=== PATIENT | female | born 1945 | race Caucasian/White ===

== ENCOUNTER → 2023-02-10 | Outpatient (CLI) | payer MEDICARE ==
[2023-02-10 14:00] LABS: Albumin, Blood 3.7 g/dL (3.4-5.0); Albumin/Globulin Ratio 0.8 (0.8-1.8); Bilirubin, Total 0.9 mg/dL (0.1-1.0); Bun/Creatinine Ratio 19.4 (12.0-20.0); Calcium, Blood 8.9 mg/dL (8.5-10.1); Creatinine, Blood 0.93 mg/dL (0.40-1.00); Globulin, Blood 4.4 g/dL (2.2-4.0); Potassium, Blood 4.6 mmol/L (3.5-5.5); Total Protein, Blood 8.1 g/dL (6.4-8.2)
[2023-02-10 14:03] LABS: BASOPHILS ABSOLUTE AUTO 0.01 K/mm3 (0.00-0.23); BASOPHILS PERCENT AUTO 0 % (0-2); EOSINOPHILS ABSOLUTE AUTO 0.03 K/mm3 (0.00-0.68); EOSINOPHILS PERCENT AUTO 0 % (0-6); Hematocrit 37.4 % (33.0-51.0); Hemoglobin 11.4 g/dL (11.5-16.0); IMMATURE GRAN ABSOLUTE AUTO 0.03 K/mm3 (0.00-0.10); IMMATURE GRAN PERCENT AUTO 0 % (0-1); LYMPHOCYTES ABSOLUTE AUTO 1.29 K/mm3 (0.84-5.20); LYMPHOCYTES PERCENT AUTO 17 % (21-46); MONOCYTES ABSOLUTE AUTO 0.46 K/mm3 (0.16-1.47); MONOCYTES PERCENT AUTO 6 % (4-13); Mean Corpuscular HGB 27.7 pg (26.0-34.0); Mean Corpuscular HGB Conc 30.5 g/dL (31.5-36.5); Mean Corpuscular Volume 91 fL (80-100); Mean Platelet Volume 11.1 fL (9.1-12.4); NEUTROPHILS ABSOLUTE AUTO 5.71 K/mm3 (1.96-9.15); NEUTROPHILS PERCENT AUTO 76 % (41-73); Platelet Count 141 K/mm3 (150-400); RDW Coefficient Variation 15.5 % (11.7-14.2); RDW Standard Deviation 51.2 fL (35.1-46.3); Red Blood Cell Count 4.12 M/mm3 (3.80-5.20); White Blood Cell Count 7.53 K/mm3 (4.00-11.30)
== END | disposition home or self-care (01) ==
LOC: LAB 13:47 → LAB SHORT 13:47
PROVIDERS: Chiropractor
DX: E86.0 Dehydration (principal)
CPT/HCPCS: 80053; 85025

== ENCOUNTER → 2023-02-18 | Outpatient (CLI) | payer MEDICARE ==
[2023-02-18 17:14] LABS: BASOPHILS ABSOLUTE AUTO 0.02 K/mm3 (0.00-0.23); BASOPHILS PERCENT AUTO 0 % (0-2); EOSINOPHILS ABSOLUTE AUTO 0.02 K/mm3 (0.00-0.68); EOSINOPHILS PERCENT AUTO 0 % (0-6); Hemoglobin 10.3 g/dL (11.5-16.0); IMMATURE GRAN ABSOLUTE AUTO 0.02 K/mm3 (0.00-0.10); IMMATURE GRAN PERCENT AUTO 0 % (0-1); LYMPHOCYTES PERCENT AUTO 17 % (21-46); MONOCYTES ABSOLUTE AUTO 0.35 K/mm3 (0.16-1.47); MONOCYTES PERCENT AUTO 7 % (4-13); Mean Corpuscular HGB 27.2 pg (26.0-34.0); Mean Corpuscular HGB Conc 30.3 g/dL (31.5-36.5); Mean Corpuscular Volume 90 fL (80-100); Mean Platelet Volume 12.5 fL (9.1-12.4); NEUTROPHILS ABSOLUTE AUTO 3.56 K/mm3 (1.96-9.15); NEUTROPHILS PERCENT AUTO 75 % (41-73); Platelet Count 119 K/mm3 (150-400); RDW Coefficient Variation 15.4 % (11.7-14.2); RDW Standard Deviation 50.4 fL (35.1-46.3); Red Blood Cell Count 3.78 M/mm3 (3.80-5.20); White Blood Cell Count 4.77 K/mm3 (4.00-11.30)
[2023-02-18 18:04] LABS: Free Thyroxine 1.32 ng/dL (0.70-1.60)
[2023-02-18 18:12] LABS: Albumin, Blood 3.6 g/dL (3.4-5.0); Bilirubin, Total 0.8 mg/dL (0.1-1.0); Bun/Creatinine Ratio 26.7 (12.0-20.0); Calcium, Blood 8.9 mg/dL (8.5-10.1); Creatinine, Blood 0.71 mg/dL (0.40-1.00); Globulin, Blood 3.6 g/dL (2.2-4.0); Thyroid Stimulating Hormone 8.63 uIU/mL (0.360-4.800); Total Protein, Blood 7.2 g/dL (6.4-8.2)
[2023-02-20 07:13] LABS: HEMOGLOBIN A1C 5.7 % (4.8-5.6)
== END | disposition home or self-care (01) ==
LOC: LAB SHORT 10:29 → LAB 10:29
PROVIDERS: Nurse Practitioner Family
DX: E11.59 Type 2 diabetes mellitus with other circulatory complications (principal); E03.9 Hypothyroidism, unspecified; K74.60 Unspecified cirrhosis of liver; E61.1 Iron deficiency
CPT/HCPCS: 80053; 82728; 83036; 84439; 84443; 85025

== ENCOUNTER → 2023-07-28 | Outpatient (CLI) | payer MEDICARE ==
[2023-07-28 18:20] LABS: BASOPHILS ABSOLUTE AUTO 0.01 K/mm3 (0.00-0.23); BASOPHILS PERCENT AUTO 0 % (0-2); EOSINOPHILS ABSOLUTE AUTO 0.02 K/mm3 (0.00-0.68); EOSINOPHILS PERCENT AUTO 0 % (0-6); Hematocrit 33.8 % (33.0-51.0); Hemoglobin 10.1 g/dL (11.5-16.0); IMMATURE GRAN ABSOLUTE AUTO 0.04 K/mm3 (0.00-0.10); IMMATURE GRAN PERCENT AUTO 1 % (0-1); LYMPHOCYTES ABSOLUTE AUTO 1.09 K/mm3 (0.84-5.20); LYMPHOCYTES PERCENT AUTO 16 % (21-46); MONOCYTES PERCENT AUTO 7 % (4-13); Mean Corpuscular HGB 26.6 pg (26.0-34.0); Mean Corpuscular HGB Conc 29.9 g/dL (31.5-36.5); Mean Corpuscular Volume 89 fL (80-100); Mean Platelet Volume 10.8 fL (9.1-12.4); NEUTROPHILS ABSOLUTE AUTO 5.06 K/mm3 (1.96-9.15); NEUTROPHILS PERCENT AUTO 75 % (41-73); Platelet Count 142 K/mm3 (150-400); RDW Coefficient Variation 15.5 % (11.7-14.2); RDW Standard Deviation 49.3 fL (35.1-46.3); White Blood Cell Count 6.72 K/mm3 (4.00-11.30)
== END | disposition home or self-care (01) ==
LOC: LAB SHORT 18:16 → LAB 18:16
PROVIDERS: Family Medicine
DX: J44.1 Chronic obstructive pulmonary disease with (acute) exacerbation (principal); R07.9 Chest pain, unspecified
CPT/HCPCS: 83880; 84145; 84484; 85025

== ENCOUNTER 2023-08-15 23:15 | Emergency (ER) | payer MEDICARE ==
[~2023-08-15] VITALS: Ht 162.6 cm; Wt 90.7 kg
[2023-08-16 00:09] LABS: BASOPHILS ABSOLUTE AUTO 0.01 K/mm3 (0.00-0.23); BASOPHILS PERCENT AUTO 0 % (0-2); EOSINOPHILS ABSOLUTE AUTO 0.04 K/mm3 (0.00-0.68); EOSINOPHILS PERCENT AUTO 1 % (0-6); Hematocrit 30.6 % (33.0-51.0); Hemoglobin 9.3 g/dL (11.5-16.0); IMMATURE GRAN ABSOLUTE AUTO 0.02 K/mm3 (0.00-0.10); IMMATURE GRAN PERCENT AUTO 0 % (0-1); LYMPHOCYTES ABSOLUTE AUTO 1.24 K/mm3 (0.84-5.20); LYMPHOCYTES PERCENT AUTO 24 % (21-46); MONOCYTES ABSOLUTE AUTO 0.41 K/mm3 (0.16-1.47); MONOCYTES PERCENT AUTO 8 % (4-13); Mean Corpuscular HGB 26.9 pg (26.0-34.0); Mean Corpuscular HGB Conc 30.4 g/dL (31.5-36.5); Mean Corpuscular Volume 88 fL (80-100); Mean Platelet Volume 11.4 fL (9.1-12.4); NEUTROPHILS ABSOLUTE AUTO 3.48 K/mm3 (1.96-9.15); NEUTROPHILS PERCENT AUTO 67 % (41-73); Platelet Count 123 K/mm3 (150-400); RDW Coefficient Variation 16.1 % (11.7-14.2); RDW Standard Deviation 51.8 fL (35.1-46.3); Red Blood Cell Count 3.46 M/mm3 (3.80-5.20)
[2023-08-16] MEDS ORDERED: EUTHYROX175 MCG PO (00:24)
[2023-08-16] MEDS ORDERED: METO100ER PO (00:25)
[2023-08-16] MEDS ORDERED: SPIR25 PO (00:25)
[2023-08-16] MEDS ORDERED: Isosorbide Mono30 MG PO (00:25)
[2023-08-16] MEDS ORDERED: FURO20 PO (00:25)
[2023-08-16] MEDS ORDERED: MONT10T PO (00:25)
[2023-08-16] MEDS ORDERED: ALLO100 PO (00:25)
[2023-08-16 00:26] LABS: Anion Gap 2 mmol/L (6-16); Blood Urea Nitrogen 16 mg/dL (8-24); Bun/Creatinine Ratio 19.3 (12.0-20.0); C-REACTIVE PROTEIN, EXT RANGE <0.290 mg/dL (0.000-0.300); CO2, Blood 38 mmol/L (21-32); Calcium, Blood 8.3 mg/dL (8.5-10.1); Chloride, Blood 97 mmol/L (98-108); Creatinine, Blood 0.83 mg/dL (0.40-1.00); Glomerular Filtration Rate 73 (60-); Glucose, Blood 215 mg/dL (70-99); Potassium, Blood 3.8 mmol/L (3.5-5.5); Sodium, Blood 137 mmol/L (136-145)
[2023-08-16] MEDS ORDERED: PANT40 PO (00:26)
[2023-08-16] MEDS ORDERED: GLIM2 PO (00:26)
[2023-08-16] MEDS ORDERED: INSULANI (00:26)
[2023-08-16] MEDS ORDERED: FERROUS GLUCON324 M3 PO (00:26)
[2023-08-16] MEDS ORDERED: HUMALOG JU100 UNIT/2 SQ (00:27)
[2023-08-16] MEDS ORDERED: CEPH500 PO (00:38)
[2023-08-16 01:00] VITALS: BP 138/63
== END 2023-08-16 01:01 | disposition home or self-care (01) ==
LOC: ER 23:15
PROVIDERS: Emergency Medicine
DX: L03.116 Cellulitis of left lower limb (principal); Z88.2 Allergy status to sulfonamides; Z79.899 Other long term (current) drug therapy; Z79.4 Long term (current) use of insulin; J44.9 Chronic obstructive pulmonary disease, unspecified
CPT/HCPCS: 80048; 85025; 86140; 93971; 99284-25; A9270

== ENCOUNTER → 2023-09-21 | Outpatient (CLI) | payer MEDICARE ==
[~2023-09-21] MED LIST: ALLO100 PO; CEPH500 PO; EUTHYROX175 MCG PO; FERROUS GLUCON324 M3 PO; FURO20 PO; GLIM2 PO; HUMALOG JU100 UNIT/2 SQ; INSULANI; Isosorbide Mono30 MG PO; METO100ER PO; MONT10T PO; PANT40 PO; SPIR25 PO
== END ==
LOC: LAB 07:35 → LAB SHORT 07:35
DX: L82.0 Inflamed seborrheic keratosis (principal)
CPT/HCPCS: 88305

== ENCOUNTER 2023-12-06 15:04 | Emergency (ER) | payer MEDICARE ==
[~2023-12-06] VITALS: Ht 162.6 cm; Wt 90.7 kg
[2023-12-06 15:29] LABS: BASOPHILS ABSOLUTE AUTO 0.01 K/mm3 (0.00-0.23); BASOPHILS PERCENT AUTO 0 % (0-2); EOSINOPHILS ABSOLUTE AUTO 0.04 K/mm3 (0.00-0.68); EOSINOPHILS PERCENT AUTO 1 % (0-6); Hematocrit 32.8 % (33.0-51.0); Hemoglobin 9.7 g/dL (11.5-16.0); IMMATURE GRAN ABSOLUTE AUTO 0.03 K/mm3 (0.00-0.10); IMMATURE GRAN PERCENT AUTO 0 % (0-1); LYMPHOCYTES ABSOLUTE AUTO 0.83 K/mm3 (0.84-5.20); LYMPHOCYTES PERCENT AUTO 10 % (21-46); MONOCYTES ABSOLUTE AUTO 0.39 K/mm3 (0.16-1.47); MONOCYTES PERCENT AUTO 5 % (4-13); Mean Corpuscular HGB 25.5 pg (26.0-34.0); Mean Corpuscular HGB Conc 29.6 g/dL (31.5-36.5); Mean Corpuscular Volume 86 fL (80-100); Mean Platelet Volume 11.1 fL (9.1-12.4); NEUTROPHILS ABSOLUTE AUTO 6.78 K/mm3 (1.96-9.15); NEUTROPHILS PERCENT AUTO 84 % (41-73); Platelet Count 141 K/mm3 (150-400); RDW Coefficient Variation 15.4 % (11.7-14.2); RDW Standard Deviation 48.4 fL (35.1-46.3); White Blood Cell Count 8.08 K/mm3 (4.00-11.30)
[2023-12-06 15:49] LABS: Albumin, Blood 3.3 g/dL (3.4-5.0); Albumin/Globulin Ratio 0.8 (0.8-1.8); Bilirubin, Total 0.7 mg/dL (0.1-1.0); Bun/Creatinine Ratio 22.4 (12.0-20.0); Calcium, Blood 8.7 mg/dL (8.5-10.1); Creatinine, Blood 0.71 mg/dL (0.40-1.00); Globulin, Blood 4.1 g/dL (2.2-4.0); Potassium, Blood 3.8 mmol/L (3.5-5.5); Total Protein, Blood 7.4 g/dL (6.4-8.2)
[2023-12-06 15:52] LABS: Source, Urine Clean Catch
[2023-12-06 16:00] LABS: Appearance, Urine Cloudy (Clear); Bilirubin, Urine Neg (Neg); Blood, Urine 1+ (Neg); Color, Urine Yellow (P-Yellow); Glucose Qualitative, Urine Neg (Neg); Ketones, Urine Neg (Neg); Leukocyte Esterase, Urine 3+ (Neg); Nitrite, Urine Neg (Neg); Protein, Urine 1+ (Neg); Urobilinogen, Urine NORM (Normal)
[2023-12-06 16:06] LABS: White Blood Cells, Urine 25-50 /hpf (0-5)
[2023-12-06 16:07] LABS: Bacteria Many /hpf; Red Blood Cells, Urine 0-2 /hpf (0-2); Squamous Epithelial Cells Many /hpf (Few)
[2023-12-06] MEDS ORDERED: Florastor250 MG PO (16:50)
[2023-12-06] MEDS ORDERED: SYMBICORT 160-4.6 GM INH (16:51)
[2023-12-06] MEDS ORDERED: HYDROCODONE-AC1 EA10 PO (21:30)
[2023-12-06] MEDS ORDERED: RX PP HYDROcodone-APAP 1 Prepack/30MLBTL UD ONE (21:30)
[2023-12-06 22:00] VITALS: BP 104/50
== END 2023-12-06 22:17 | disposition home or self-care (01) ==
LOC: ER 15:04
PROVIDERS: Student in an Organized Health Care Education/Training Program
DX: R10.33 Periumbilical pain (principal); J44.9 Chronic obstructive pulmonary disease, unspecified; Z99.81 Dependence on supplemental oxygen; Z88.8 Allergy status to other drugs, medicaments and biological substances; Z88.2 Allergy status to sulfonamides; Z79.899 Other long term (current) drug therapy; Z79.4 Long term (current) use of insulin; Z87.891 Personal history of nicotine dependence
CPT/HCPCS: 74177; 80053; 81001; 83690; 85025; 87086; 99284-25; A9270; Q9967

== ENCOUNTER 2024-05-18 09:30 | Inpatient (IN) | payer MEDICARE ==
[~2024-05-18] VITALS: Ht 162.6 cm; Wt 87.2 kg
[~2024-05-18 09:30] MED LIST changes: +Florastor250 MG PO; +HYDROCODONE-AC1 EA10 PO; -INSULANI; +INSULANI SC; +SYMBICORT 160-4.6 GM INH
[2024-05-18 10:53] LABS: BASOPHILS ABSOLUTE AUTO 0.02 K/mm3 (0.00-0.23); BASOPHILS PERCENT AUTO 0 % (0-2); EOSINOPHILS ABSOLUTE AUTO 0.02 K/mm3 (0.00-0.68); EOSINOPHILS PERCENT AUTO 0 % (0-6); Hematocrit 29.8 % (33.0-51.0); Hemoglobin 8.7 g/dL (11.5-16.0); IMMATURE GRAN ABSOLUTE AUTO 0.06 K/mm3 (0.00-0.10); IMMATURE GRAN PERCENT AUTO 1 % (0-1); LYMPHOCYTES ABSOLUTE AUTO 1.16 K/mm3 (0.84-5.20); LYMPHOCYTES PERCENT AUTO 9 % (21-46); MONOCYTES ABSOLUTE AUTO 0.91 K/mm3 (0.16-1.47); MONOCYTES PERCENT AUTO 7 % (4-13); Mean Corpuscular HGB 23.6 pg (26.0-34.0); Mean Corpuscular HGB Conc 29.2 g/dL (31.5-36.5); Mean Corpuscular Volume 81 fL (80-100); NEUTROPHILS ABSOLUTE AUTO 10.24 K/mm3 (1.96-9.15); NEUTROPHILS PERCENT AUTO 83 % (41-73); Platelet Count 216 K/mm3 (150-400); RDW Coefficient Variation 16.1 % (11.7-14.2); RDW Standard Deviation 47.1 fL (35.1-46.3); Red Blood Cell Count 3.69 M/mm3 (3.80-5.20); White Blood Cell Count 12.41 K/mm3 (4.00-11.30)
[2024-05-18] MEDS ORDERED: NS 1,000 ML IV SCH (11:00)
[2024-05-18] MEDS ORDERED: Ondansetron HCl 2 MG / ML 2ML Vial IV ONE (11:00)
[2024-05-18] MEDS ORDERED: HYDROmorphone HCl/Pf 1MG SYR IV ONE (11:00)
[2024-05-18 11:14] LABS: Albumin, Blood 2.8 g/dL (3.4-5.0); Albumin/Globulin Ratio 0.6 (0.8-1.8); Bilirubin, Total 1.5 mg/dL (0.1-1.0); Bun/Creatinine Ratio 17.4 (12.0-20.0); Creatinine, Blood 0.75 mg/dL (0.40-1.00); Globulin, Blood 4.8 g/dL (2.2-4.0); Potassium, Blood 4.5 mmol/L (3.5-5.5); Total Protein, Blood 7.6 g/dL (6.4-8.2)
[2024-05-18] MEDS ORDERED: Ketorolac Tromethamine 15mg Vial IV ONE (11:45)
[2024-05-18] MEDS ORDERED: CeFAZolin Sodium 1,000 MG in NS 50 ML IV ONE (11:45)
[2024-05-18] MEDS ORDERED: FentaNYL Citrate 50 MCG/ML 2 ML Injection IV ONE ×2 (11:45→15:00)
[2024-05-18] MEDS ORDERED: Vancomycin HCL 1,250 MG in NS 250 ML IV ONE (13:00)
[2024-05-18] MEDS ORDERED: CefTRIAXone Sodium 1,000 MG in NS 100 ML IV SCH (13:00)
[2024-05-18] MEDS ORDERED: FLU VACC TS2024-25(6MOS UP)/PF 45 MCG/0.5 ML SYRINGE IM ONE (13:45)
[2024-05-18] MEDS ORDERED: Insulin Human Lispro 100 Units/ML 3ML Syringe SC SCH (16:30)
[2024-05-18 16:31] VITALS: BP 111/100
[2024-05-18] MEDS ORDERED: FentaNYL Citrate 50 MCG/ML 2 ML Injection IV PRN (16:45)
[2024-05-18] MEDS ORDERED: OxyCODONE 5 mg/Acetamin 325 mg TABLET PO PRN (16:50)
[2024-05-18] MEDS ORDERED: Ketorolac Tromethamine 15mg Vial IV PRN (16:55)
[2024-05-18] MEDS ORDERED: BELBUCA300 MCG BC (17:25)
[2024-05-18] MEDS ORDERED: TRAM50 PO (19:32)
[2024-05-18] MEDS ORDERED: OXYC10TA19 PO (19:33)
[2024-05-18 19:37] VITALS: BP 111/56
[2024-05-18] MEDS ORDERED: Lactobacil 2-S.Thermo-Bifido 1 1 Cap PO SCH (21:00)
[2024-05-19 03:24] VITALS: BP 125/61
--- NOTE | 2024-05-19 04:43 | NUR ---
NOC SUMMARY- PT PAIN MANAGED WELL. PT HAND ELEVATED AND ICED TOLERATED. PT IS AMBULATORY TO RESTROOM WITH GB AND ASSISTANCE. PT HAS BEEN ABLE TO REST QUIETLY THIS SHIFT. PT IS WANTING TO TAKE HER HOME VITAMINS WHILE HERE. WILL PASS ON TO DAY SHIFT. PT IS CONCERNED ABOUT HER AREDS 2 MED FOR EYE HEALTH. NO OTHER ISSUES NOTED. CALL LIGHT IN REACH AND BED ALARM ON.
[2024-05-19 04:59] LABS: BASOPHILS ABSOLUTE AUTO 0.01 K/mm3 (0.00-0.23); BASOPHILS PERCENT AUTO 0 % (0-2); EOSINOPHILS ABSOLUTE AUTO 0.04 K/mm3 (0.00-0.68); EOSINOPHILS PERCENT AUTO 1 % (0-6); Hematocrit 25.9 % (33.0-51.0); Hemoglobin 7.4 g/dL (11.5-16.0); IMMATURE GRAN ABSOLUTE AUTO 0.02 K/mm3 (0.00-0.10); IMMATURE GRAN PERCENT AUTO 0 % (0-1); LYMPHOCYTES ABSOLUTE AUTO 1.26 K/mm3 (0.84-5.20); LYMPHOCYTES PERCENT AUTO 18 % (21-46); MONOCYTES ABSOLUTE AUTO 0.55 K/mm3 (0.16-1.47); MONOCYTES PERCENT AUTO 8 % (4-13); Mean Corpuscular HGB 23.3 pg (26.0-34.0); Mean Corpuscular HGB Conc 28.6 g/dL (31.5-36.5); Mean Corpuscular Volume 82 fL (80-100); Mean Platelet Volume 11.1 fL (9.1-12.4); NEUTROPHILS ABSOLUTE AUTO 5.29 K/mm3 (1.96-9.15); NEUTROPHILS PERCENT AUTO 74 % (41-73); Platelet Count 162 K/mm3 (150-400); RDW Standard Deviation 47.8 fL (35.1-46.3); Red Blood Cell Count 3.17 M/mm3 (3.80-5.20); White Blood Cell Count 7.17 K/mm3 (4.00-11.30)
[2024-05-19 05:26] LABS: Albumin, Blood 2.5 g/dL (3.4-5.0); Albumin/Globulin Ratio 0.6 (0.8-1.8); Bilirubin, Total 0.8 mg/dL (0.1-1.0); Bun/Creatinine Ratio 23.7 (12.0-20.0); Calcium, Blood 8.8 mg/dL (8.5-10.1); Creatinine, Blood 0.72 mg/dL (0.40-1.00); Globulin, Blood 4.4 g/dL (2.2-4.0); Potassium, Blood 4.3 mmol/L (3.5-5.5); Total Protein, Blood 6.9 g/dL (6.4-8.2)
[2024-05-19] MEDS ORDERED: Levothyroxine Sodium 0.175 MG TAB PO SCH (06:00)
[2024-05-19 06:35] LABS: IMMATURE RETIC FRACTION 31.3 % (2.3-16.0); RETIC HGB EQUIVALENT 23.2 pg (28.20-36.60); RETICULOCYTE ABSOLUTE 0.09 M/mm3 (0.0200-0.1100); RETICULOCYTE COUNT PERCENT 3.06 % (0.50-2.50)
[2024-05-19] MEDS ORDERED: Mometasone/Formoterol MDI 200/5 mcg 13 GM INH SCH (06:35)
[2024-05-19] MEDS ORDERED: NS 1,000 ML IV SCH (07:00)
[2024-05-19 07:29] VITALS: BP 119/61
[2024-05-19 08:43] LABS: Percent Saturation 20.2 % (15.0-50.0)
[2024-05-19] MEDS ORDERED: Metoprolol Succinate 50 MG TABCR PO SCH (09:00)
[2024-05-19] MEDS ORDERED: Spironolactone 12.5 MG TAB PO SCH (09:00)
[2024-05-19] MEDS ORDERED: Allopurinol 100 MG Tab PO SCH (09:00)
[2024-05-19] MEDS ORDERED: Enoxaparin 40 MG/0.4 ML SYR SC SCH (09:00)
[2024-05-19 12:57] LABS: Hematocrit 26.8 % (33.0-51.0); Hemoglobin 7.7 g/dL (11.5-16.0); Mean Corpuscular HGB 24.1 pg (26.0-34.0); Mean Corpuscular HGB Conc 28.7 g/dL (31.5-36.5); Mean Corpuscular Volume 84 fL (80-100); Mean Platelet Volume 11.2 fL (9.1-12.4); Platelet Count 154 K/mm3 (150-400); RDW Coefficient Variation 16.2 % (11.7-14.2); RDW Standard Deviation 49.3 fL (35.1-46.3); White Blood Cell Count 6.31 K/mm3 (4.00-11.30)
[2024-05-19] MEDS ORDERED: PRAMIPEXOLE DI0.5 M1 PO (15:20)
[2024-05-19] MEDS ORDERED: PRAVASTATIN SOD10 MG PO (15:24)
[2024-05-19] MEDS ORDERED: INCRUSE ELPT62.5MCG INH (15:26)
[2024-05-19] MEDS ORDERED: PEPCID40 MG PO (15:27)
[2024-05-19] MEDS ORDERED: NITROGLYCERIN0.4 M3 SL (15:28)
[2024-05-19] MEDS ORDERED: ALBU8HFA2 INH (15:29)
[2024-05-19 15:33] VITALS: BP 111/61
[2024-05-19] MEDS ORDERED: Vancomycin HCL 1,250 MG in NS 250 ML IV SCH (16:00)
--- NOTE | 2024-05-19 17:00 | NUR ---
NO ACUTE CHANGES, PATIENT HAS A HARD TIME HEARING AND UNDERSTANDING CARE PLAN, DR HODGE IN ROOM NOW, POSSIBLE I&D TOMORROW, BS ONLY TAKE BY RN FROM PATIENTS PALM OF HAND, EASILY CONFUSED AD THEN BECOMES ANGRY AND JUST WANTS TO GO HOME, 2 GRANDAUGHTERS AT BEDSIDE VERY HELPFUL WITH CARE, USES CALL LIGHT APPROPRIATELY, CALL LIGHT WITH IN REACH
[2024-05-19 19:07] VITALS: BP 132/60
[2024-05-20] VITALS (11 sets, daily range): BP systolic 113–152; BP diastolic 53–103
--- NOTE | 2024-05-20 04:37 | NUR ---
SHIFT SUMMARY PT IS A&O X4, ABLE TO MAKE HER NEEDS KNOWN. RIGHT HAND ICED Q20 MINUTE INTERVALS, AND ELEVATED WITH PILLOWS. MEDICATED FOR 7/10 PAIN PER EMAR WITH GOOD EFFECTIVNESS. GRAND DAUGHTERS BY THE BEDSIDE AT ADVOCATING FOR THE PT. NPO AFTER MIDNIGHT FOR 0730 I&D SCHEDULED PROCEDURE. NEW IV AT LEFT UPPER ARM. BED AT THE LOWEST POSITION, CALL LIGHT WITHIN REACH. NO ACUTE EVENTS DURING THIS SHIFT.
[2024-05-20] MEDS ORDERED: Pantoprazole Sodium 40 MG Tab PO SCH (06:00)
[2024-05-20 08:32] LABS: Hemoglobin 7.1 g/dL (11.5-16.0)
[2024-05-20] MEDS ORDERED: Docusate Sodium/Senna 1 Tab PO PRN (09:05)
[2024-05-20] MEDS ORDERED: Lactated Ringer's 1,000 ML IV SCH (11:05)
--- NOTE | 2024-05-20 11:12 | NUR ---
pt taken to surgery, A/0x4 at this time. accompanied by family
[2024-05-20] MEDS ORDERED: FentaNYL Citrate 50 MCG/ML 2 ML Injection ONE ×2 (11:27→13:14)
[2024-05-20] MEDS ORDERED: propofoL 20 ML IV ONE (11:27)
--- NOTE | 2024-05-20 11:35 | NUR ---
PT TO SDS WITH 22G IV IN LEFT FA
[2024-05-20] MEDS ORDERED: Ondansetron HCl 2 MG / ML 2ML Vial ONE (12:44)
[2024-05-20 15:16] LABS: Hematocrit 25.8 % (33.0-51.0); Hemoglobin 7.4 g/dL (11.5-16.0)
--- NOTE | 2024-05-20 16:24 | NUR ---
SHIFT SUMMARY PT AWAKE DURING SHIFT REPORT, TALKING TO DR HONG. PT UP TO EOB AND BTHRM NEEDED USING FWW AND SBA WITH IV PUMP. DR RICH IN EARLY TO SEE PT AND DISCUSS PLAN OF CARE. BOWEL CARE ORDERED AND GIVEN. PT NPO SINCE NM FOR I&D ON R HAND. DR HODGE IN TO TALK WITH PT AT 0750 AND AGAIN PRIOR TO GOING DOWN FOR SX @ 11:10. PT RETURNED TO THIS AFTERNOON, ABLE TO TX SELF TO BED. R ARM IN SLING. DRSG TO R HAND AND ARM C/D/I. PER REPORT, RH WRAPPED WITH GAUZE, KERLEX, AND ELOISA WRAP; TO BE CHANGED BY DR HODGE WHEN NEEDED. PT'S FAMILY IN AT ALL DAY. PT MEDICATED PER EMAR FOR C/O PAIN STARTING. RESTING QUIETLY AT THIS TIME. IV ABX INFUSING PER EMAR. CALL LT IN REACH.
--- NOTE | 2024-05-20 16:54 | NUR ---
PER PACU REPORT, NO PUS FOUND IN WOUND. CX'S TAKEN. PT TO RECEIVE ONE MORE DOSE OF IV ABX AND THEN MAY BE CLEAR TO D/C HOME.
[2024-05-21 05:21] VITALS: BP 127/76
[2024-05-21 06:17] LABS: BASOPHILS PERCENT AUTO 0 % (0-2); EOSINOPHILS ABSOLUTE AUTO 0.05 K/mm3 (0.00-0.68); EOSINOPHILS PERCENT AUTO 1 % (0-6); Hematocrit 23.2 % (33.0-51.0); Hemoglobin 6.6 g/dL (11.5-16.0); IMMATURE GRAN ABSOLUTE AUTO 0.02 K/mm3 (0.00-0.10); IMMATURE GRAN PERCENT AUTO 1 % (0-1); LYMPHOCYTES ABSOLUTE AUTO 0.77 K/mm3 (0.84-5.20); LYMPHOCYTES PERCENT AUTO 18 % (21-46); MONOCYTES ABSOLUTE AUTO 0.37 K/mm3 (0.16-1.47); MONOCYTES PERCENT AUTO 9 % (4-13); Mean Corpuscular HGB 23.7 pg (26.0-34.0); Mean Corpuscular HGB Conc 28.4 g/dL (31.5-36.5); Mean Corpuscular Volume 83 fL (80-100); Mean Platelet Volume 10.3 fL (9.1-12.4); NEUTROPHILS PERCENT AUTO 72 % (41-73); Platelet Count 138 K/mm3 (150-400); RDW Standard Deviation 48.4 fL (35.1-46.3); Red Blood Cell Count 2.79 M/mm3 (3.80-5.20); White Blood Cell Count 4.31 K/mm3 (4.00-11.30)
[2024-05-21 06:46] LABS: Creatinine, Blood 0.7 mg/dL (0.40-1.00); Potassium, Blood 3.9 mmol/L (3.5-5.5)
[2024-05-21 07:07] VITALS: BP 124/65
[2024-05-21 10:15] VITALS: BP 126/51
[2024-05-21 12:59] LABS: HAPTOGLOBIN 190 mg/dL (30-200)
[2024-05-21 13:38] LABS: Hemoglobin 7.7 g/dL (11.5-16.0)
[2024-05-21 14:59] VITALS: BP 118/62
--- NOTE | 2024-05-21 15:56 | NUR ---
SHIFT SUMMARY PT AWAKE AT START OF SHIFT, HOPING TO GO HOME. DR BOWLES IN TO SEE PT. PT WANTING TO GO HOME. NEW ORDERS PLACED BY DR NAGEL. PT TO RECEIVE [address] RICH IN TO TALK WITH PT AND DISCUSS PLAN OF CARE. BLOOD GIVEN PER ORDERS. LABS DRAWN WHEN COMPLETE. PT TAKEN DOWN FOR ABD CT; SEE CHART. PT'S GRANDAUGHTERS HERE TO SEE PT AND BRING FOOD. PT UP TO BTHRM INDEPENDENTLY WITH SBA ONLY FOR SAFETY. IV SL. PT MEDICATED FOR C/O PAIN PER EMAR. ICE BAG ALSO GIVEN FOR RH WHILE RESTING. PT WANTING TO GO FOR WALK WHEN FAMILY RETURNS. CALL LT IN REACH. ABLE TO MAKE NEEDS KNOWN.
[2024-05-21] MEDS ORDERED: Vancomycin HCL 1,500 MG in NS 250 ML IV SCH (16:00)
[2024-05-21] MEDS ORDERED: NS 250 ML IV PRN (17:05)
[2024-05-21 19:46] VITALS: BP 122/66
[2024-05-22 04:22] VITALS: BP 128/58
[2024-05-22 06:22] LABS: Hematocrit 28.1 % (33.0-51.0); Hemoglobin 8.3 g/dL (11.5-16.0)
[2024-05-22 07:04] LABS: Bun/Creatinine Ratio 15.5 (12.0-20.0); Calcium, Blood 8.4 mg/dL (8.5-10.1); Creatinine, Blood 0.65 mg/dL (0.40-1.00); Potassium, Blood 3.9 mmol/L (3.5-5.5)
[2024-05-22 07:36] VITALS: BP 131/68
[2024-05-22] MEDS ORDERED: DULERA 100 MCG/13 GM INH (10:57)
[2024-05-22] MEDS ORDERED: CEFD300 PO (10:59)
--- NOTE | 2024-05-22 11:23 | NUR ---
NOTE: CALLED DR. MARSHALL CELL PHONE, NO ANSWER. CALLED THE PROVIDER ANSWERING SERVICE AND LEFT A MESSAGE IN REGARDS TO HER SEEING THE PT PRIOR TO DISCHARGE. PROVIDED PHONE NUMBER TO THE ANSWERING SERVICE.
--- NOTE | 2024-05-22 14:59 | NUR ---
DISCHARGE NOTE PT DISCHARGED TO HOME, PICKED UP BY HER GRANDDAUGHTER. IV REMOVED. DRESSING TO R HAND CHANGED AND ASSESS PRIOR TO DC. DR. MARSHALL REDRESSED THE INCISION. MEDICATED FOR PAIN THIS SHIFT PER THE EMAR. HARD SCRIPT PROVIDED TO THE PT. MEDICATIONS FAXED TO THE PHARMACY OF HER CHOICE. PERSONAL BELONGINGS RETURNED. NO ACUTE CHANGES PRIOR TO DISCHARGE.
== END 2024-05-22 15:00 | disposition home health service (06) | DRG 41 ==
LOC: ER 09:30 → MEDS 09:31 → ENPENDDIS 05-22 11:53 → MEDS 05-22 15:00
PROVIDERS: Family Medicine; Orthopaedic Surgery; Physician Assistant; Registered Nurse; Student in an Organized Health Care Education/Training Program; ADMIT Internal Medicine
PROC: 0RBN0ZZ Excision of Right Wrist Joint, Open Approach (ICD-10-PCS; 2024-05-20)
PROC: 01N50ZZ Release Median Nerve, Open Approach (ICD-10-PCS; principal; 2024-05-20 11:30)
PROC: 30233N1 Transfusion of Nonautologous Red Blood Cells into Peripheral Vein, Percutaneous Approach (ICD-10-PCS; 2024-05-21)
DX: G56.01 Carpal tunnel syndrome, right upper limb (principal); D62 Acute posthemorrhagic anemia; L03.113 Cellulitis of right upper limb; I50.32 Chronic diastolic (congestive) heart failure; K76.6 Portal hypertension; M65.831 Other synovitis and tenosynovitis, right forearm; Z28.21 Immunization not carried out because of patient refusal; E11.9 Type 2 diabetes mellitus without complications; J44.9 Chronic obstructive pulmonary disease, unspecified; M19.041 Primary osteoarthritis, right hand; E89.0 Postprocedural hypothyroidism; Z90.49 Acquired absence of other specified parts of digestive tract; D64.9 Anemia, unspecified; K74.60 Unspecified cirrhosis of liver; Z90.710 Acquired absence of both cervix and uterus; Z88.2 Allergy status to sulfonamides; Z91.048 Other nonmedicinal substance allergy status; Z88.8 Allergy status to other drugs, medicaments and biological substances; Z79.4 Long term (current) use of insulin; Z79.899 Other long term (current) drug therapy; Z79.890 Hormone replacement therapy; R16.1 Splenomegaly, not elsewhere classified
CPT/HCPCS: 36415; 36430; 73130; 73201; 73223; 74176; 80048; 80053; 80202; 82607; 82728; 82746; 82947; 83010; 83036; 83540; 83550; 83605; 83615; 85014; 85018; 85025; 85027; 85045; 85060; 85651; 86140; 86850; 86900; 86901; 86923; 87040; 87070; 87075; 87205; 88304; 93971; 94640; 94664; 94760; 94762; 96366; 96375; 96376; 99284-25; A9270; A9579; G0378; J0696; J1170; J1650; J1885; J2405; J2704; J3010; J3370; J7030; J7050; J7120; P9016; Q9967

== ENCOUNTER 2024-07-21 17:11 | Emergency (ER) | payer MEDICARE ==
[~2024-07-21] VITALS: Ht 162.6 cm; Wt 86.2 kg
[~2024-07-21 17:11] MED LIST changes: +ALBU8HFA2 INH; +BELBUCA300 MCG BC; +CEFD300 PO; +DULERA 100 MCG/13 GM INH; +INCRUSE ELPT62.5MCG INH; +NITROGLYCERIN0.4 M3 SL; +OXYC10TA19 PO; +PEPCID40 MG PO; +PRAMIPEXOLE DI0.5 M1 PO; +PRAVASTATIN SOD10 MG PO; +TRAM50 PO
[2024-07-21 22:46] VITALS: BP 149/72
[2024-07-21 23:24] LABS: BASOPHILS ABSOLUTE AUTO 0.01 K/mm3 (0.00-0.23); BASOPHILS PERCENT AUTO 0 % (0-2); EOSINOPHILS ABSOLUTE AUTO 0.03 K/mm3 (0.00-0.68); EOSINOPHILS PERCENT AUTO 0 % (0-6); Hematocrit 29.7 % (33.0-51.0); Hemoglobin 8.9 g/dL (11.5-16.0); IMMATURE GRAN ABSOLUTE AUTO 0.02 K/mm3 (0.00-0.10); IMMATURE GRAN PERCENT AUTO 0 % (0-1); LYMPHOCYTES ABSOLUTE AUTO 1.03 K/mm3 (0.84-5.20); LYMPHOCYTES PERCENT AUTO 15 % (21-46); MONOCYTES ABSOLUTE AUTO 0.43 K/mm3 (0.16-1.47); MONOCYTES PERCENT AUTO 6 % (4-13); Mean Corpuscular HGB 24.7 pg (26.0-34.0); Mean Corpuscular Volume 83 fL (80-100); NEUTROPHILS ABSOLUTE AUTO 5.52 K/mm3 (1.96-9.15); NEUTROPHILS PERCENT AUTO 79 % (41-73); Platelet Count 153 K/mm3 (150-400); RDW Coefficient Variation 17.1 % (11.7-14.2); RDW Standard Deviation 51.4 fL (35.1-46.3); White Blood Cell Count 7.04 K/mm3 (4.00-11.30)
[2024-07-21 23:45] LABS: Albumin/Globulin Ratio 0.6 (0.8-1.8); Bilirubin, Total 0.5 mg/dL (0.1-1.0); Calcium, Blood 9.1 mg/dL (8.5-10.1); Creatinine, Blood 0.73 mg/dL (0.40-1.00); Globulin, Blood 4.9 g/dL (2.2-4.0); Potassium, Blood 4.1 mmol/L (3.5-5.5); Total Protein, Blood 7.9 g/dL (6.4-8.2)
[2024-07-21] MEDS ORDERED: Cephalexin Monohydrate 500 MG Cap PO ONE (23:50)
[2024-07-22] MEDS ORDERED: CEPH500 PO (00:05)
== END 2024-07-22 00:21 | disposition home or self-care (01) ==
LOC: ER 17:11
PROVIDERS: Student in an Organized Health Care Education/Training Program
DX: L03.116 Cellulitis of left lower limb (principal); J44.9 Chronic obstructive pulmonary disease, unspecified; E11.9 Type 2 diabetes mellitus without complications; I10 Essential (primary) hypertension; Z79.899 Other long term (current) drug therapy; Z79.4 Long term (current) use of insulin; Z88.2 Allergy status to sulfonamides; Z91.048 Other nonmedicinal substance allergy status
CPT/HCPCS: 80053; 85025; 99284; A9270